=== PATIENT | female | born 1990 | race Hispanic/Latino ===

== ENCOUNTER 2019-03-18 05:38 | Day surgery (SDC) | payer BC ==
[2019-03-17 15:25] VITALS: BP 116/78
[2019-03-17 15:26] LABS: BASOPHILS % (AUTO) 0.1 % (0.0-5.0); EOSINOPHILS % (AUTO) 1.1 % (0.0-8.0); HEMATOCRIT 28.2 % (36-48); LYMPHOCYTES % (AUTO) 29.7 % (21.0-51.0); MEAN CORPUSCULAR HEMOGLOBIN 28.9 pg (27.0-33.0); MEAN CORPUSCULAR HGB CONC 31.9 g/dL (32.0-36.0); MEAN CORPUSCULAR VOLUME 90.7 fL (79-99); MONOCYTES % (AUTO) 8.4 % (3.0-13.0); NEUTROPHILS % (AUTO) 60.2 % (40.0-77.0); PLATELET COUNT (AUTO) 219 K/uL (130-400); RED BLOOD CELL COUNT(AUTO) 3.11 MIL/uL (4.00-5.50); RED CELL DISTRIBUTION WIDTH 13.2 % (11.0-15.5); WHITE BLOOD COUNT (AUTO) 8.1 K/uL (4.8-10.8)
[~2019-03-18] VITALS: Ht 157.5 cm; Wt 60.8 kg
[2019-03-18] VITALS (11 sets, daily range): BP systolic 97–127; BP diastolic 58–78
[2019-03-18] MEDS ORDERED: LACTATED RINGERS 1000ML 1,000 ML IV ONE (06:05)
[2019-03-18] MEDS ORDERED: LIDOCAINE HCL MPF 1% 5ML VIAL ONE (06:28)
[2019-03-18] MEDS ORDERED: FENTANYL CITRATE PF 50 MCG/1 ML 2ML VIAL ONE ×2 (06:28→06:50)
[2019-03-18] MEDS ORDERED: MIDAZOLAM HCL 1 MG/ML 2ML VIAL ONE (06:28)
[2019-03-18] MEDS ORDERED: PROPOFOL 10 MG/ML 20ML VIAL IV ONE (06:28)
[2019-03-18] MEDS ORDERED: ONDANSETRON HCL 4 MG/2 ML VIAL ONE (06:29)
[2019-03-18] MEDS ORDERED: OXYTOCIN-LR 20 UNITS/1000 ML 1,000 ML IV ONE (06:49)
--- NOTE | 2019-03-18 07:10 | NUR ---
RECOVERY PT RECEIVED FROM OR BY KONRAD DAWKINS. ASSESSMENT DONE; SEE DOCUMENTATION. NO BLEEDING PRESENT ON HEAVEN PAD. WILL MONITOR.
--- NOTE | 2019-03-18 07:45 | NUR ---
REPORT REPORT GIVEN TO SOHAM ELIAS RN FOR CONTINUITY OF CARE.
--- NOTE | 2019-03-18 07:55 | NUR ---
TRANSFER PT TRANSFERRED VIA STRETCHER TO DAY PT BY NIKKO TOLEDO CNA AND STACEY HARRELL CNA, IN STABLE CONDITION. PT DENIES PAIN AND HAS NO COMPLAINTS AT THIS TIME.
[2019-03-18] MEDS ORDERED: LACTATED RINGERS 1000ML 1,000 ML IV SCH (08:00)
--- NOTE | 2019-03-18 08:22 | NUR ---
DISCHARGE INSTRUCTIONS PROVIDED TO PATIENT AND PATIENT'S BOYFRIEND. HANDOUTS PROVIDED AND FOLLOW UP APPOINTMENTS PROVIDED WELL. BOTH VERBALIZED UNDERSTANDING AND ALL QUESTIONS/CONCERNS ADDRESSED.
--- NOTE | 2019-03-18 08:40 | NUR ---
PATIENT DISCHARGED FROM HOSPITAL VIA WHEELCHAIR BY SOHAM ELIAS RN. PATIENT ASSISTED INTO PRIVATE VEHICLE DRIVEN BY BOYFRIEND.
== END 2019-03-18 08:40 | disposition home or self-care (01) ==
LOC: DAH 05:38
PROVIDERS: ATTEND Obstetrics & Gynecology
DX: O03.4 Incomplete spontaneous abortion without complication (principal); Z72.89 Other problems related to lifestyle; Z82.49 Family history of ischemic heart disease and other diseases of the circulatory system; Z83.3 Family history of diabetes mellitus; Z82.5 Family history of asthma and other chronic lower respiratory diseases
CPT/HCPCS: 36415; 59812; 85025; 86850; 86900; 86901; 88305; A4215; A4221; A4222; A4223; A4600; A4663; J2250; J2405; J2590; J2704; J3010 ×2; J3490; J7120 ×2